=== PATIENT | male | born 1980 | race Caucasian/White ===

== ENCOUNTER 2023-06-09 14:52 | Emergency (ER) | payer BC ==
[~2023-06-09] VITALS: Ht 177 cm; Wt 122.0 kg
[2023-06-09 14:55] VITALS: BP 116/87
[2023-06-09] MEDS ORDERED: IBUPROFEN 800 MG TABLET PO STA (15:07)
--- NOTE | 2023-06-09 15:07 | ED Cough/URI ---
General Chief Complaint: Cough/Cold/Flu Symptoms Stated Complaint: COUGH; CHEST CONGESTION; FEVER; PRASAD Nursing Triage Note: COUGH, FEVER, SORE THROAT, HEADACHE, CHILL, BODY ACHES STARTING ON WEDNESDAY. Source: patient History of Present Illness Date Seen by Provider: Jun 09, 2023 Time Seen by Provider: 14:58 Initial Comments 42-year-old male presenting with complaints of cough, subjective fever, sore throat, headache, chills, body aches since Wednesday. He thought that it would get better on its own but when he continued to have symptoms today came to the emergency department. He states that he recently moved here from [place] and does not have a primary care provider. He denies any chronic medical problems and denies any allergies to medications. He has not had any known ill contacts. Timing/Duration: getting worse (Since Wednesday) Severity/Quality: moderate Prior Episodes/Possible Cause: no prior episodes Associated Symptoms: cough, fever/chills, headache, muscle aches, nasal congestion, nasal drainage, sore throat Allergies and Home Medications Allergies Coded Allergies: No Known Drug Allergies (Unverified , 06/09/23) Patient Home Medication List Home Medication List Reviewed: Yes Guaifenesin (Mucinex) 1,200 Mg Tab.er.12h, 1,200 MG PO BID Prescribed by: DAVID DAWSON on 06/09/23 1538 Oseltamivir Phosphate (Oseltamivir Phosphate) 75 Mg Capsule, 75 MG PO BID Prescribed by: DAVID DAWSON on 06/09/23 1538 Review of Systems Review of Systems Constitutional: chills, fever (subjective) EENTM: hoarseness, nose congestion, throat pain; No ear discharge, No epistaxis Respiratory: cough Cardiovascular: no symptoms reported Gastrointestinal: no symptoms reported Genitourinary: no symptoms reported Musculoskeletal: see HPI Skin: No rash Psychiatric/Neurological: Headache Past [id number] Hx Patient Social History Tobacco Use?: No Use of E-Cig and/or Vaping dev: No Substance use?: No Past Medical History Surgeries: No Physical Exam Vital Signs - First Documented 06/09/23 14:55 Temp 38.7 Pulse 93 Resp 16 B/P (MAP) 116/87 (97) Pulse Ox 95 O2 Delivery Room Air Capillary Refill : Less Than 3 Seconds Height: '" Weight: lbs. oz. kg; 38.00 BMI Method: General Appearance: WD/WN, no apparent distress HEENT: PERRL/EOMI; No photophobia; pharyngeal erythema; No tonsillar exudate Neck: non-tender, full range of motion, supple Respiratory: chest non-tender, lungs clear, normal breath sounds, no respiratory distress, no accessory muscle use Cardiovascular: normal peripheral pulses, regular rate, rhythm Gastrointestinal: normal bowel sounds, non tender, soft, no pulsatile mass Extremities: normal range of motion, non-tender, normal capillary refill Neurologic/Psychiatric: alert, oriented x 3 Skin: normal color, warm/dry Progress/Results/Core Measures Suspected Sepsis SIRS Temperature: Pulse: 93 Respiratory Rate: 16 Blood Pressure 116 /87 Mean: 97 Results/Orders Lab Results Laboratory Tests Test 06/09/23 15:00 Range/Units Influenza Type A (RT-PCR) Not Detected Not Detecte Influenza Type B (RT-PCR) Detected H Not Detecte SARS-CoV-2 RNA (RT-PCR) Not Detected Not Detecte Group A Streptococcus Screen Not Detected NotDetected My Orders Orders - DAVID DAWSON MD Rapid Strep A Screen (06/09/23 15:04) Covid 19 Inhouse Test (06/09/23 15:04) Influenza A And B By Pcr (06/09/23 15:04) Ibuprofen Tablet (Ibuprofen Tablet) (06/09/23 15:07) Vital Signs/I&O 06/09/23 14:55 Temp 38.7 Pulse 93 Resp 16 B/P (MAP) 116/87 (97) Pulse Ox 95 O2 Delivery Room Air Capillary Refill : Less Than 3 Seconds Blood Pressure Mean: 97 Progress Note #1: Progress Note Differential diagnosis of COVID, influenza, strep, viral syndrome. Patient has oxygen saturation of 95 to 97% on room air. He currently has a slightly elevated temperature 38.7 C. obtain nasal swab for COVID and flu and throat swab for strep. With his elevated temperature administer ibuprofen 800 mg p.o. x1. Consider chest x-ray however his lungs are clear and oxygen saturation is not low. Progress Note #2: Time: 15:32 Progress Note Lab called to state patient was positive for Influenza B. Negative for Influenza A, Covid and strep. Will offer Tamiflu and symptomatic care with mucinex and OTC meds. Departure Impression Primary Impression: Influenza B Additional Impression: Upper respiratory infection with cough and congestion Disposition: HOME, SELF-CARE Condition: Stable Departure-Patient Inst. Decision time for Depature: 15:35 Referrals: NO,LOCAL PHYSICIAN (PCP) Primary Care Physician [facility] Patient Instructions: Upper Respiratory Infection ED, Cough, Adult ED, Flu, Adult ED Add. Discharge Instructions: Try to stay well hydrated and drink plenty of fluids and water. Use acetaminophen and or ibuprofen to help with fever and body aches. Establish care with [facility] or provider of your choice for follow up. [facility] can be reached by calling [phone]. They do have urgent care and walk in care in addition to primary care services. Take the Tamiflu to help shorten the course of the viral infection. May take Mucinex over the counter to help with cough and congestion. All discharge instructions reviewed with patient and/or family. Voiced understanding. Scripts Guaifenesin (Mucinex) 1,200 Mg Tab.er.12h 1200 MG PO BID for 7 Days, #14 TAB 0 Refills Prov: DAVID DAWSON MD 06/09/23 Oseltamivir Phosphate (Oseltamivir Phosphate) 75 Mg Capsule 75 MG PO BID for Flu B for 5 Days, #10 CAP 0 Refills Prov: DAVID DAWSON MD 06/09/23 Work/School Note: Work Release Form Date Seen in the Emergency Department: Jun 09, 2023 Return to Work: Jun 11, 2023 Restrictions: Return-No Fever (24hrs) DAVID DAWSON MD Jun 09, 2023 15:07
[2023-06-09] MEDS ORDERED: GUAI120013 PO (15:38)
[2023-06-09] MEDS ORDERED: OSEL75CA15 PO (15:38)
== END 2023-06-09 15:45 | disposition home or self-care (01) ==
LOC: ER FS 14:55
DX: J10.1 Influenza due to other identified influenza virus with other respiratory manifestations (principal)
CPT/HCPCS: 87430; 87636; 99283